=== PATIENT | male | born 1990 | race African-American/Black ===

== ENCOUNTER 2021-10-25 15:19 | Emergency (ER) | payer MEDICAID ==
[~2021-10-25] VITALS: Ht 177.8 cm; Wt 75.0 kg
[2021-10-25] MEDS ORDERED: ONDANSETRON HCL 4MG/2ML INJ IV NR (16:03)
[2021-10-25] MEDS ORDERED: ONDANSETRON HCL 4MG/2ML INJ IV STA (16:03)
[2021-10-25] MEDS ORDERED: KETOROLAC 15MG/ML VIAL IV ONE (16:15)
[2021-10-25] MEDS ORDERED: KETOROLAC 15MG/ML VIAL IV NR (16:15)
[2021-10-25] MEDS ORDERED: SODIUM CHLORIDE 0.9% 1,000 ML IV ONE (16:15)
[2021-10-25 16:53] LABS: BASOPHILS % 0.3 % (0.0-2.0); EOSINOPHILS % 0.1 % (0.0-5.0); HEMATOCRIT. 42.1 % (42.0-52.0); HEMOGLOBIN. 14.1 g/dL (14.0-18.0); LYMPHOCYTES % 8.1 % (20.0-50.0); MEAN CORPUSCULAR HEMOGLOBIN 30.6 pg (28.0-32.0); MEAN PLATELET VOLUME 8.2 fl (7.4-10.4); MONOCYTES % 3.4 % (2.0-8.0); NEUTROPHILS % 88.1 % (40.0-76.0); PLATELET 325 x1000/uL (130-400); RED BLOOD CELL COUNT 4.62 mill/uL (4.7-6.1); RED CELL DISTRIBUTION WIDTH 13.5 % (11.6-14.6)
[2021-10-25 17:01] LABS: CHLORIDE 105 mEq/L (98-107)
[2021-10-25 17:08] LABS: ETHANOL BLOOD 12 mg/dL
[2021-10-25 18:13] VITALS: BP 112/85
== END 2021-10-25 18:14 | disposition left against medical advice (07) ==
LOC: ER 15:19
DX: R11.2 Nausea with vomiting, unspecified (principal); F12.10 Cannabis abuse, uncomplicated
CPT/HCPCS: 36415; 80053; 80320; 83735; 85025; 96374; 96375; 99284; J1885; J2405; J7030; G0480